=== PATIENT | female | born 1985 | race Two or more races ===

== ENCOUNTER 2024-04-10 11:05 | Emergency (ER) | payer BC, OTHER ==
[~2024-04-10] VITALS: Ht 160 cm; Wt 58.7 kg
[2024-04-10] MEDS: ONDANSETRON ODT 4 MG TAB PO ONE (12:31)
--- NOTE | 2024-04-10 12:55 | ED.PDOC ---
History of Present Illness HPI Comments 38 y/o F presents with c/o nausea,. vomiting, and diarrhea for 1 day, today. Patient endorses sudden and unprovoked onset of symptoms at 1930, yesterday evening. Patient comments on having no liquid of food tolerance and vomiting or having diarrhea, immediately, after attempting to consume anything. She refutes any additional relevant or pertinent Hx, such as recent travel, or spoiled food intake, with exception of positive influenza sick contact exposure with her [id number]. She denies having any abdominal pain, hematemesis, constipation, urinary symptoms, fever, chills, or other associated symptoms or modifiers at this time. 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 all LAW OFFICE RECEPTIONIST Hx Family History Family History: Unknown Social History Smoker: Non-Smoker Alcohol: Denies ETOH Use Drugs: Denies Drug Use Lives In: Home Gastrointestinal: reports: diarrhea, nausea, vomiting All Other Systems: Reviewed and Negative (negative unless otherwise stated above or in HPI) Physical Exam General Appearance: No Apparent Distress, Normal HEENT: Normal ENT Inspection, Pharynx Normal, TMs Normal Neck: Full Range of Motion, Non-Tender, Normal, Normal Inspection Respiratory: Chest Non-Tender, Lungs Clear, No Accessory Muscle Use, No Respiratory Distress, Normal Breath Sounds Cardiovascular: No Edema, No JVD, No Murmur, No Gallop, Normal Peripheral Pulses, Regular Rate/Rhythm Breast Exam: Deferred Gastrointestinal: No Organomegaly, Non Tender, No Pulsatile Mass, Normal Bowel Sounds, Soft Genitalia: Deferred Pelvic: Deferred Rectal: Deferred Extremities: No calf tenderness, Normal capillary refill, Normal inspection, Normal range of motion, Non-tender, No pedal edema Musculoskeletal : Apperance: Normal Neurologic: Alert, windows vmware engineer II-XII nml as Tested, No Motor Deficits, Normal Affect, Normal Mood, No Sensory Deficits Cerebellar Function: Normal Reflexes: Normal Skin: Dry, Normal Color, Warm Lymphatic: No Adenopathy Was a procedure done? Was a procedure done?: No Differential Dx Considerations may include: gastritis, gastroenteritis, GERD, viral syndrome, dehydration, spoiled food, X-Ray, Labs, Meds, VS Vital Signs Date Time Temp Pulse Resp B/P (MAP) Pulse Ox O2 Delivery O2 Flow Rate FiO2 04/10/24 14:46 99 17 103/58 (73) 98 04/10/24 12:33 99 17 98 Room Air 04/10/24 12:33 97.6 99 17 102/50 (67) 98 97.6 04/10/24 11:15 97.7 115 18 122/59 (80) 97 Lab Test 04/10/24 14:49 Range/Units Influenza Type A Antigen Negative Negative Influenza Type B Antigen Negative Negative Current Medications Medications (Trade) Dose Ordered Sig/Tri Route Start Time Stop Time Status Last Admin Ondansetron HCl (Zofran Po) 4 mg ONCE ONCE PO 04/10/24 12:00 04/10/24 12:02 DC 04/10/24 12:31 Metoclopramide HCl (Reglan Injection) 10 mg ONCE ONCE IV 04/10/24 15:45 04/10/24 15:46 DC 04/10/24 15:51 Sodium Chloride 500 ml @ 500 mls/hr Q1H ONCE IV 04/10/24 15:45 04/10/24 16:44 04/10/24 15:46 X-Ray, Labs, Meds, VS Comment This 38-year-old female presents secondary to it several history of generalized body aches with nausea vomiting diarrhea. She was considered to be an influenza as she has a family member who started out with similar symptoms and then developed influenza. She has no other complaints such as neck pain, chest pain, shortness of breath, fever, chills or sweats. Denies modifying factors. Radiation of her symptoms. Workup here was negative including negative influenza a and B test. As such, discharge the patient home with a prescription for Zofran.. She should do very well hydrated keep her urine clear. She should to considerable and diet and advanced slowly. Time of 1ST Reevaluation: 12:10 Reevaluation 1ST: Unchanged Patient Education/Counseling: Diagnosis, Treatment Family Education/Counseling: No Family Present Departure 1 Departure Time of Disposition: 16:11 Impression: Primary Impression: Nausea & vomiting Disposition: 01 HOME / SELF CARE / HOMELESS Condition: Good Discharged With: Self Critical Care Note Critical Care Time?: No Stability Stability form required: No Heart Score Heart Score: Heart Score Response (Comments) Value History N/A 0 EKG N/A 0 Age N/A 0 Risk Factors N/A 0 Troponin N/A 0 Total 0 I personally scribed for IVETT MACKENZIE MD ([email or web address]) on 04/10/24 at 12:55. Electronically submitted by Roel Jones [email or web address]). IVETT MACKENZIE MD Apr 10, 2024 12:55
[2024-04-10 15:31] LABS: Rapid Influenza A Negative (Negative); Rapid Influenza B Negative (Negative)
[2024-04-10] MEDS: SODIUM CHLORIDE 0.9% 500 ML IV ONE (15:46)
[2024-04-10] MEDS: METOCLOPRAMIDE HCL 5MG/ml INJ 2ml VIAL IV ONE (15:51)
[2024-04-10] MEDS ORDERED: ZOFR4T PO (16:14)
[2024-04-10 16:30] VITALS: BP 110/65; PULSE 92; RESP 19; TEMP 98.6; O2SAT 100
== END 2024-04-10 16:31 | disposition home or self-care (01) ==
LOC: ER 11:05
DX: R11.2 Nausea with vomiting, unspecified (principal); R19.7 Diarrhea, unspecified
CPT/HCPCS: 87804; 96374; 99283; J2765; J7040; Q0162